=== PATIENT | female | born 1965 | race Caucasian/White ===

== ENCOUNTER → 2017-02-16 | Outpatient (REF) | payer MEDICARE, MEDICAID | LOC: M LABNEURO 17:34 | PROVIDERS: ATTEND Physician Assistant Medical | DX: R56.9 Unspecified convulsions (principal) ==

== ENCOUNTER → 2017-05-04 | Outpatient (REF) | payer MEDICARE, MEDICAID | LOC: M LABNEURO 12:43 | PROVIDERS: ATTEND Physician Assistant Medical | DX: R56.9 Unspecified convulsions (principal) ==

== ENCOUNTER → 2017-12-27 | Outpatient (REF) | payer MEDICARE, MEDICAID ==
[2017-12-27 16:37] LABS: PHENYTOIN (DILANTIN) 11.5 UG/ML (10.0-20.0)
== END ==
LOC: M LABNEURO 12:03
DX: R56.9 Unspecified convulsions (principal)
CPT/HCPCS: 80185

== ENCOUNTER → 2022-05-14 | Outpatient (CLI) | payer MEDICARE, MEDICAID ==
[~2022-05-14] MED LIST: ELIQ5TAB PO; LAMO200T3 PO; METO200T28 PO; PHEN100C PO; TOPR25TA PO
== END ==
LOC: M RAD 13:04
PROVIDERS: ATTEND Otolaryngology
DX: R22.1 Localized swelling, mass and lump, neck (principal)

== ENCOUNTER → 2022-06-10 | Outpatient (CLI) | payer MEDICARE, MEDICAID ==
[2022-06-10 10:50] VITALS: BP 195/93
== END ==
LOC: M IRPRO 09:43
PROVIDERS: ATTEND Otolaryngology
DX: R22.1 Localized swelling, mass and lump, neck (principal); E89.820 Postprocedural hematoma of an endocrine system organ or structure following an endocrine system procedure

== ENCOUNTER → 2022-07-08 | Outpatient (CLI) | payer MEDICARE, MEDICAID | LOC: M PLAIMG 09:42 | PROVIDERS: ATTEND Otolaryngology | DX: R22.1 Localized swelling, mass and lump, neck (principal) ==

== ENCOUNTER → 2023-07-28 | Outpatient (CLI) | payer MEDICARE, MEDICAID | LOC: M RAD 09:49 | PROVIDERS: ATTEND Otolaryngology | DX: E04.1 Nontoxic single thyroid nodule (principal) ==

== ENCOUNTER → 2025-05-15 | Outpatient (CLI) | payer MEDICARE, MEDICAID ==
[~2025-05-15] MED LIST changes: +METO200T15 PO; -METO200T28 PO
== END ==
LOC: M RAD 10:37
PROVIDERS: ATTEND Otolaryngology
DX: E04.1 Nontoxic single thyroid nodule (principal)